=== PATIENT | male | born 1970 | race African-American/Black ===

== ENCOUNTER → 2017-12-12 | Outpatient (CLI) | payer OTHER ==
[~2017-12-12] MED LIST: ALKA-SELTZER G1 EACH PO; TYLENOL SINUS
== END ==
LOC: RAD 12:42
DX: R07.89 Other chest pain (principal)

== ENCOUNTER 2018-06-10 15:16 | Emergency (ER) | payer OTHER ==
[~2018-06-10] VITALS: Ht 182.9 cm; Wt 122.5 kg
[2018-06-10 16:59] VITALS: BP 125/77
== END 2018-06-10 17:00 | disposition home or self-care (01) ==
LOC: ER 15:16
DX: S61.210A Laceration without foreign body of right index finger without damage to nail, initial encounter (principal); F17.210 Nicotine dependence, cigarettes, uncomplicated; W26.8XXA Contact with other sharp object(s), not elsewhere classified, initial encounter; Y92.89 Other specified places as the place of occurrence of the external cause; Y93.89 Activity, other specified; Y99.8 Other external cause status

== ENCOUNTER → 2019-02-05 | Outpatient (CLI) | payer OTHER | LOC: RAD 09:27 | DX: M54.2 Cervicalgia (principal); M25.511 Pain in right shoulder ==

== ENCOUNTER → 2019-02-12 | Outpatient (CLI) | payer OTHER | LOC: RAD 10:40 | DX: M19.011 Primary osteoarthritis, right shoulder (principal) ==

== ENCOUNTER → 2021-07-13 | Outpatient (CLI) | payer OTHER | LOC: CAT 08:55 | PROVIDERS: ATTEND Nurse Practitioner | DX: S00.93XA Contusion of unspecified part of head, initial encounter (principal); X58.XXXA Exposure to other specified factors, initial encounter; Y92.89 Other specified places as the place of occurrence of the external cause; Y93.89 Activity, other specified; Y99.8 Other external cause status ==